=== PATIENT | female | born 1945 | race Caucasian/White ===

== ENCOUNTER 2017-12-19 14:47 | Emergency (ER) | payer OTHER ==
[~2017-12-19] VITALS: Ht 154.9 cm; Wt 59.0 kg
[2017-12-19 15:22] LABS: HEMATOCRIT 33.2 % (37.0-47.0); HEMOGLOBIN 9.9 g/dl (12.0-16.0); MEAN CELL VOLUME 88.5 fl (81.0-99.0); MEAN CORPUSCULAR HGB 26.4 pg (27.0-31.0); MEAN CORPUSCULAR HGB CONC 29.8 g/dl (33.0-37.0); MEAN PLATELET VOLUME 10.2 fl (9.6-12.3); PLATELET COUNT AUTOMATED 134 10*3/uL (130-400); RED BLOOD COUNT 3.75 10*6/uL (4.10-5.10); RED CELL DISTRI WIDTH 15.9 % (0-14.5); WHITE BLOOD COUNT 11.7 10*3/uL (4.8-10.8)
[2017-12-19 15:30] LABS: ACT PARTIAL THROMBO TIME 35.1 SECONDS (20.8-31.5); INTERNATIONAL NORM RATIO 1.2 (2.0-3.5)
[2017-12-19 15:38] LABS: ALBUMIN 3.7 gm/dl (3.1-4.5); CREATININE 1.31 mg/dL (0.55-1.02); POTASSIUM 3.8 mmol/L (3.5-5.1); TOTAL PROTEIN 7.8 gm/dL (6.4-8.2)
[2017-12-19 15:48] LABS: TOTAL CELLS COUNTED 100 #CELLS
[2017-12-19 15:49] LABS: PLATELET SUFFICIENCY NORMAL (NORMAL)
== END 2017-12-19 20:55 | disposition short-term general hospital (02) ==
LOC: ED 14:47
PROVIDERS: Nurse Practitioner Family
DX: S80.12XA Contusion of left lower leg, initial encounter (principal); W22.8XXA Striking against or struck by other objects, initial encounter; Y93.89 Activity, other specified; Y92.89 Other specified places as the place of occurrence of the external cause; Y99.8 Other external cause status